=== PATIENT | male | born 1965 | race Asian ===

== ENCOUNTER 2017-05-06 13:29 | Outpatient (CLI) | payer OTHER | END 2017-05-06 21:37 | disposition home or self-care (01) | LOC: RAD 13:29 | DX: M85.88 Other specified disorders of bone density and structure, other site (principal); D86.89 Sarcoidosis of other sites ==

== ENCOUNTER 2020-04-01 09:58 | Emergency (ER) | payer OTHER ==
[~2020-04-01] VITALS: Ht 180.3 cm; Wt 81.6 kg
[2020-04-01 10:06] VITALS: BP 104/79; TEMP 98.2
[2020-04-01 11:04] LABS: PLATELET COUNT 318 K/uL (142-355)
[2020-04-01 11:12] LABS: POTASSIUM 4.6 mmol/L (3.6-5.2)
[2020-04-01] MEDS ORDERED: PRED10TA27 PO (16:14)
[2020-04-01] MEDS ORDERED: ALBUTEROL0.083 % INH (16:16)
[2020-04-01] MEDS ORDERED: PROAIR HFA INH (16:16)
[2020-04-02] MEDS ORDERED: PRED10TA27 PO (10:20)
[2020-04-02] MEDS ORDERED: LEVOFLOXACIN750 MG PO (10:20)
== END 2020-04-01 15:06 | disposition still patient (30) ==
LOC: ED 09:58
PROVIDERS: Family Medicine
DX: J18.9 Pneumonia, unspecified organism (principal); D72.828 Other elevated white blood cell count; Z03.818 Encounter for observation for suspected exposure to other biological agents ruled out
CPT/HCPCS: 80053; 81000; 82728; 83605; 85027; 85379; 87040; 87502; 87635; 96360; 96365; 96375; 99284; J0696; J2175; J2550; J2930; Q9963; U0003

== ENCOUNTER 2020-04-01 14:20 | Inpatient (IN) | payer OTHER ==
[~2020-04-01] VITALS: Ht 180.3 cm; Wt 70.3 kg
[2020-04-01 15:34] VITALS: BP 117/72; TEMP 98.2; Ht 180.3 cm; Wt 70.3 kg
[2020-04-01] MEDS ORDERED: PRED10TA27 PO (16:14)
[2020-04-01] MEDS ORDERED: ALBUTEROL0.083 % INH (16:16)
[2020-04-01] MEDS ORDERED: PROAIR HFA INH (16:16)
[2020-04-01 19:40] VITALS: BP 97/63; TEMP 98.3
--- NOTE | 2020-04-01 22:39 | NUR ---
PATIENT IS IN A PLEASANT MOOD AND EXPRESSED THE NEED TO SHOWER. THE PATIENT IS PROVIDED WITH THESE MATERIALS AND SHOWERES. THE IV IS RE ATTACHED. PATIENT THEN EXPRESSES NEED FOR SOME PAIN MEDICINE. dR NAM IN THE ER ORDERED NORCO PO Q4 AND THE PATIENT WAS PLEASED. MERYL IS REESTING WELL NOW
[2020-04-01 23:54] VITALS: BP 104/66; TEMP 98.4
[2020-04-02 01:28] LABS: PLATELET COUNT 281 K/uL (142-355)
[2020-04-02 01:42] LABS: POTASSIUM 5.1 mmol/L (3.6-5.2)
[2020-04-02 04:00] VITALS: BP 118/72; TEMP 98.4
[2020-04-02 08:00] VITALS: BP 107/71; TEMP 98.1
[2020-04-02] MEDS ORDERED: LEVOFLOXACIN750 MG PO (10:20)
[2020-04-02] MEDS ORDERED: PRED10TA27 PO (10:20)
== END 2020-04-02 18:30 | disposition home or self-care (01) | DRG 196 ==
LOC: MED/SURG 14:20
PROVIDERS: Internal Medicine Endocrinology, Diabetes & Metabolism; ADMIT Family Medicine
DX: D86.0 Sarcoidosis of lung (principal); J18.8 Other pneumonia, unspecified organism; R07.89 Other chest pain; R74.0 Nonspecific elevation of levels of transaminase and lactic acid dehydrogenase [LDH]; R91.1 Solitary pulmonary nodule
CPT/HCPCS: 36415; 80048; 83605; 84484; 85027; 96360; 96361; 96365; 96374; 96375; 99284; J1650; J1956; J2930; J3490

== ENCOUNTER 2020-09-05 12:41 | Emergency (ER) | payer OTHER ==
[~2020-09-05] VITALS: Ht 180.3 cm; Wt 79.4 kg
[~2020-09-05 12:41] MED LIST: ALBUTEROL0.083 % INH; LEVOFLOXACIN750 MG PO; PRED10TA27 PO; PROAIR HFA INH
[2020-09-05 12:56] VITALS: TEMP 98.4
[2020-09-05 13:19] LABS: PLATELET COUNT 691 K/uL (142-355)
[2020-09-05 13:47] LABS: POTASSIUM 4.4 mmol/L (3.6-5.2)
[2020-09-05 15:17] VITALS: BP 108/74
== END 2020-09-05 15:18 | disposition home or self-care (01) ==
LOC: ED 12:41
PROVIDERS: Family Medicine
DX: N28.89 Other specified disorders of kidney and ureter (principal); R10.31 Right lower quadrant pain
CPT/HCPCS: 36415; 80053; 81000; 85027; 96360; 96375; 99284; J1885

== ENCOUNTER 2021-08-18 12:31 | Outpatient (CLI) | payer OTHER ==
[2021-08-18 12:51] LABS: PLATELET COUNT 311 K/uL (142-355)
== END 2021-08-18 19:21 | disposition home or self-care (01) ==
LOC: LABW 12:31
PROVIDERS: ATTEND Internal Medicine Sleep Medicine
DX: J45.50 Severe persistent asthma, uncomplicated (principal)
CPT/HCPCS: 36415; 82785; 85027; 86003